=== PATIENT | male | born 1980 | race Caucasian/White ===

== ENCOUNTER → 2021-10-16 07:02 | Outpatient (CLI) | payer BC, SELFPAY ==
--- NOTE | ~2021-10-16 | MR_ITS ---
EXAMINATION: MR foot LT wo con DATE: 10/16/2021 07:46 INDICATION: Mid left foot pain. Stress fracture. TECHNIQUE: Magnetic resonance imaging (MRI) of the left fore/mid foot was performed without intraveno us contrast. Sequences included sagittal T1-weighted FSE, sagittal fluid sensitive FSE STIR, coronal PD-weighted FS FSE, coronal T1-weighted FSE, axial PD-weighted FS FSE, and axial PD-weighted FSE. COMPARISON: None FINDINGS: Bone alignment is normal. There is soft tissue swelling and edema surrounding a subacute stress fract ure at the distal diaphysis of the second metatarsal. There is marrow edema surrounding the low signa l intensity nondisplaced fracture line along with surrounding exuberant periostitis with likely early callus formation. Mild osteoarthritis at the first metatarsophalangeal joint with small foci of suba rticular edema-like marrow signal change. Remaining joint spaces are relatively preserved. No signal intensity bone island at the head of the first metatarsal. Otherwise normal marrow signal throughout with no other fractures or pathologic marrow replacing process. No joint effusions. Visualized portio ns of the flexor and extensor tendons are normal. Lisfranc ligament complex along with the collateral ligament complex at the metatarsophalangeal joints and interphalangeal joints are unremarkable. IMPRESSION: 1. Nondisplaced subacute stress fracture at the neck of the left second metatarsal with surrounding e maxi callus formation. Reviewed, dictated and finalized at location A. 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 Nondisplaced subacute stress fracture at the neck of the left second metatar luz with surrounding early callus formation.
== END ==
PROVIDERS: PCP Emergency Medicine; Visit Provider Podiatrist Foot & Ankle Surgery
DX: M84.375A Stress fracture, left foot, initial encounter for fracture (principal)
CPT/HCPCS: 73718

== ENCOUNTER 2025-07-31 09:01 | Outpatient (CLI) | payer BC, SELFPAY ==
[2025-07-31 13:07] LABS: Hematocrit 42.0 % (42.0-52.0); Hemoglobin 14.0 g/dL (14.0-18.0); Immature Granulocyte Percent A 0.4 % (0-0.5); Lymphocytes Absolute Auto 1.87 K/mm3 (0.9-3.2); Mean Corpuscular HGB Conc 33.3 g/dl (32-36); Mean Corpuscular Hemoglobin 29.5 pg (26-34); Mean Corpuscular Volume 88.6 fl (80-100); Nucleated Red Blood Cells Absolute Auto 0.000 K/mm3 (0.0-0.012); Nucleated Red Blood Cells Perc 0.0 % (0.0-0.2); Platelet Count Result 268 k/mm3 (150-375); Red Blood Count 4.74 M/mm3 (4.6-6.20); White Blood Count 5.0 K/mm3 (4.5-10.0)
[2025-07-31 17:37] LABS: Alanine Aminotransferase 54 U/L (6-50); Albumin Level 4.8 g/dL (3.5-5.1); Alkaline Phosphatase 45 U/L (38-126); Anion Gap 9 mmol/L (4-12); Aspartate Amino Transferase 43 U/L (17-59); Bilirubin,Total 1.4 mg/dL (0.2-1.3); Blood Urea Nitrogen 16 mg/dL (9-20); Calcium 9.1 mg/dL (8.4-10.2); Carbon Dioxide 26 mmol/L (22-30); Chloride 102 mmol/L (98-107); Cholesterol 188 mg/dL (0-200); Estimated Glomerular Filt Rate > 60; Glucose 98 mg/dL (65-110); HDL Direct 32 mg/dL; Magnesium 2.3 mg/dL (1.6-2.3); Potassium 4.2 mmol/L (3.4-5.0); Sodium 137 mmol/L (137-145); Total Protein 7.7 g/dL (6.3-8.2); Triglycerides 208 mg/dL (<150)
[2025-07-31 18:50] LABS: Vitamin B12 309.0 pg/mL (239-931)
== END 2025-07-31 09:02 | disposition home or self-care (01) ==
LOC: ANHGOSHLAB 09:02
PROVIDERS: PCP Nurse Practitioner; Visit Provider Nurse Practitioner
DX: Z13.220 Encounter for screening for lipoid disorders (principal); Z13.29 Encounter for screening for other suspected endocrine disorder; R20.0 Anesthesia of skin; R25.2 Cramp and spasm
CPT/HCPCS: 36415; 80053; 80061; 82607; 82746; 83735; 84207; 85025